=== PATIENT | male | born 2000 | race African-American/Black ===

== ENCOUNTER 2021-07-27 22:05 | Inpatient (IN) | payer OTHER ==
[2021-07-27 22:53] VITALS: BMI 21.7
[2021-07-27] MEDS ORDERED: diazePAM 5 MG TABLET PO PRN (23:27)
[2021-07-27] MEDS ORDERED: MENTHOL/PHENOL 1 EACH UD MM PRN (23:28)
[2021-07-27] MEDS ORDERED: METHOCARBAMOL 500 MG TABLET PO PRN (23:28)
[2021-07-27] MEDS ORDERED: ONDANSETRON *ODT* 4 MG TABLET SL PRN (23:28)
[2021-07-27] MEDS ORDERED: MAGNESIUM HYDROX 2400MG/30ML ORAL SUSPENSION 30 ML CUP PO PRN (23:28)
[2021-07-27] MEDS ORDERED: hydrOXYzine PAMOATE 25 MG CAPSULE (FP) PO PRN (23:28)
[2021-07-27] MEDS ORDERED: IBUPROFEN 400 MG TABLET (FP) PO PRN (23:28)
[2021-07-27] MEDS ORDERED: MAGNESIUM CITRATE 300 ML BOTTLE PO PRN (23:28)
[2021-07-27] MEDS ORDERED: ACETAMINOPHEN 325 MG TABLET (FP) PO PRN ×2 (23:28)
[2021-07-27] MEDS ORDERED: MAG HYDROX/AL HYDROX/SIMETH 30 ML UNIT-DOSE CUP PO PRN (23:28)
[2021-07-27] MEDS ORDERED: BISMUTH SUBSALICYLATE 524 MG/30 ML PO PRN (23:28)
[2021-07-28] MEDS: diazePAM 5 MG TABLET PO SCH ×5 (00:50→22:07)
[2021-07-28] MEDS: PRENATAL VITAMINS W/ FOLIC ACID TABLET (FP) PO SCH (10:29)
[2021-07-28 10:32] LABS: HEMATOCRIT 36.9 % (35.4-49); HEMOGLOBIN 12.2 GM/dL (11.7-16.9); MCH 26.9 pg (25.7-33.7); MCHC 32.9 g/dl (32.0-35.9); MEAN CELL VOLUME 81.8 fl (80-96); MEAN PLT VOLUME 7.7 fl (7.5-11.1); PLATELET COUNT 278 10^3/uL (134-434); RBC 4.52 M/mm3 (4.00-5.60); RDW 14.9 % (11.9-15.9); WHITE BLOOD COUNT 5.9 K/mm3 (4.0-10.0)
[2021-07-28] MEDS: NICOTINE 14 MG/24 HOURS TOPICAL PATCH TD SCH (10:32)
[2021-07-28 10:42] LABS: CALCIUM 8.6 mg/dL (8.5-10.1)
[2021-07-28 10:43] LABS: ALBUMIN 3.3 g/dl (3.4-5.0); BLOOD UREA NITROGEN 7.8 mg/dL (7-18)
[2021-07-28 10:46] LABS: CREATININE 1.1 mg/dL (0.55-1.3)
[2021-07-28 10:47] LABS: TOT PROT 6.9 g/dl (6.4-8.2)
[2021-07-28 10:50] LABS: BILIRUBIN,TOTAL 0.2 mg/dL (0.2-1)
[2021-07-28] MEDS: MELATONIN 5 MG TABLETS PO SCH (22:07)
[2021-07-28] MEDS: THIAMINE HCL 100 MG TABLET (FP) PO SCH (22:07)
[2021-07-29] MEDS: diazePAM 5 MG TABLET PO SCH ×3 (05:33→22:18)
[2021-07-29] MEDS: PRENATAL VITAMINS W/ FOLIC ACID TABLET (FP) PO SCH (10:08)
[2021-07-29] MEDS: NICOTINE 14 MG/24 HOURS TOPICAL PATCH TD SCH (10:08)
[2021-07-29 12:30] LABS: HIV INTERPRETATION NEGATIVE (NEGATIVE)
[2021-07-29] MEDS: THIAMINE HCL 100 MG TABLET (FP) PO SCH (22:18)
[2021-07-29] MEDS: MELATONIN 5 MG TABLETS PO SCH (22:18)
[2021-07-30] MEDS: diazePAM 5 MG TABLET PO SCH ×2 (05:07→17:43)
[2021-07-30] MEDS: NICOTINE 14 MG/24 HOURS TOPICAL PATCH TD SCH (10:32)
[2021-07-30] MEDS: PRENATAL VITAMINS W/ FOLIC ACID TABLET (FP) PO SCH (10:32)
[2021-07-30] MEDS: THIAMINE HCL 100 MG TABLET (FP) PO SCH (22:37)
[2021-07-30] MEDS: MELATONIN 5 MG TABLETS PO SCH (22:40)
[2021-07-31] MEDS ORDERED: diazePAM 5 MG TABLET PO ONE (06:00)
[2021-07-31 09:46] VITALS: BP 138/71; PULSE 100; TEMP 97.1
== END 2021-07-31 09:28 | disposition home or self-care (01) | DRG 775 ==
LOC: YASAS 22:05 → Y3N 23:48
PROVIDERS: ADMIT Allergy & Immunology; ATTEND Allergy & Immunology
PROC: HZ2ZZZZ Detoxification Services for Substance Abuse Treatment (ICD-10-PCS; principal; 2021-07-27)
DX: F10.230 Alcohol dependence with withdrawal, uncomplicated (principal); F19.24 Other psychoactive substance dependence with psychoactive substance-induced mood disorder; F32.A Depression, unspecified; J45.20 Mild intermittent asthma, uncomplicated; R45.89 Other symptoms and signs involving emotional state; Z59.02 Unsheltered homelessness; Z56.0 Unemployment, unspecified; Z88.0 Allergy status to penicillin; Z91.013 Allergy to seafood
CPT/HCPCS: 36415; 80053; 82962; 85027; 86780; 87389; 93005; 93010; C9803; U0003; U0005